=== PATIENT | male | born 1955 | race Caucasian/White ===

== ENCOUNTER 2025-10-11 08:02 | Outpatient (CLI) | payer MEDICARE, SELFPAY ==
--- OUTSIDE RECORDS SUMMARY | 2005-07-01 18:00 | XMS_ITS | Continuity of Care Document ---
Author Organization [facility] Address [address] [place] [phone] Phone Care Team Providers Care Preforming Machine Operator Name Role Phone Magen Kaur MD Unavailable Unavailable Medications Medication Instructions Dosage Effective Dates (start - stop) Status Comments Augmentin 875 mg-125 mg Tab 1 BID - Active Vitamin B-1 50 mg Tab - Active Vitamin B-6 50 mg Tab 1 QD - Active VITAMIN E 200U CAPSULE 1 BID - Active VITAMIN C 1500MG TABLET 1 BID - Active Advance Directives Directive Yes / No Effective Date File Name No Information Encounters Encounter Description Practice Location Reason(s) For Visit Diagnoses Date Provider Providers Copied on Encounter [facility], [address] [place] [address], [id number] tel:[phone] [facility]ello [employer] No Information Aug-0 3200 5 Natasha Us[address] [place] [address], [id number] , [place]. tel:[phone] [facility], [address] [place] [address], [id number] tel:[phone] [facility] [employer] [employer] Sclerosis, multiple Apr-2 0-200 5 Natasha Us. [address] [place] [address], [id number] , [place]. tel:[phone] Family History Family Member Type Diagnosis Age At Onset No Information Payers Payer name Insurance type Covered democrat ID Authoriza ticatarino(s) Medicare MB [id number] Social History Type Description Quantity Date Captured Comments Sex Male Smoking Status No Information Chief Complaint And Reason For Visit No Information Reason For Referral Reason For Referral No Information History Of Present Illness Encounter Date Complaint History Of Prese nt Illness No Information Functional Status Date Functional Assessmen t No Information Instructions Date Instruction Additional Infor mation No Information Assessments Type Assessment Date No Information Patient Care Teams Name Effective Dates (start - stop) Status Members No Information
--- NOTE | ~2025-10-11 | PE_ITS ---
EXAMINATION: PET_PETPSMAST_PT DATE: 10/11/2025 11:00 INDICATION: Prostate cancer TECHNIQUE: 3.292 mCi of Illucix Ga-68([id number]) was administered i.v. Low dose computed tomography (CT) images were acquired from the base of the brain to the base of the brain to the proximal thighs for attenuation correction and anatomic localization. Positron emission tomography (PET) images were acquired in the same distribution beginning 68 minutes after injection. Images including fused PET/CT images were reconstructed in axial, coronal, and sagittal planes. Automated exposure control technique was employed. The dose-length product was 563.00mGy-cm. COMPARISON: None FINDINGS: Head/neck: Typical pattern of symmetric physiologic increased activity in the lacrimal, parotid and submandibular glands as well as along the mucosa of the nasal and oral cavities, pharynx and hypopharynx. No pathologically enlarged cervical lymphadenopathy or suspicious foci of increased uptake in the visualized head or neck. Chest: Mild dependent atelectasis in both lungs. No suspicious pulmonary nodules, pneumonia, pulmonary edema or pleural effusion. Heart size is normal. Small amount of atherosclerotic coronary artery calcific lesion. Thoracic aorta is normal in caliber. There are multiple markedly FDG avid normal sized lymph nodes at the right axilla and supraclavicular region with maximal SUV values up to 22.1. Linear tracts of increased activity can be seen extending distally in the visualized right upper arm and visualized proximal forearm which suggests lymphatic accumulation of extravasated uptake from the injection was at the right hand. Discussion with technologist confirms that there was some extravasation of activity with swelling at the injection site. No pathologically enlarged or other PSMA avid thoracic lymphadenopathy. Abdomen/pelvis/proximal thighs: Physiologic renal accumulation and excretion of activity in the kidneys, bladder and along portions of ureters. Prostatomegaly measuring 5.3 x 4.2 cm. There is a region of increased FDG activity at the right peripheral zone of the prostate with maximal SUV of 4.4 consistent with primary prostate cancer. Subtle 1 cm low-attenuation lesion left hepatic lobe without abnormal activity most likely either a cyst or hemangioma. Normal degree and slightly heterogenous pattern of increased uptake throughout the liver and spleen without radiologic correlate or dominant PSMA avid lesion. The gallbladder, pancreas and bilateral adrenal glands are normal. Moderate uptake scattered throughout the bowels with typical duodenal and proximal jejunal predominance and without radiologic correlate, also likely physiologic. Mild diverticulosis along the sigmoid colon without adjacent inflammatory stranding to suggest diverticulitis. Large left inguinal hernia containing fat inferiorly and a 4.8 x 3.4 cm loculated fluid collection at the proximal aspect of the inguinal canal. The proximal sigmoid colon extends across the orifice of the left inguinal hernia. There is also a small fat- containing right inguinal hernia. No other abnormal foci of increased uptake or pathologically enlarged lymphadenopathy in the abdomen, pelvis or proximal thighs. Musculoskeletal: Severe cervical and moderate thoracic and lumbar spondylosis with bridging osteophytes throughout the thoracic and lumbar spine fusion between spinous processes consistent with diffuse idiopathic skeletal hyperostosis (DISH). There are few small densely sclerotic likely bone islands in the pelvis and bilateral femoral heads without evident pacemaker activity consistent with benign bone islands. Old healed posterior right rib fractures. No suspicious PSMA abdomen avid bone lesions to suggest metastatic prostate cancer. IMPRESSION: 1. Multiple very small but intensely FDG avid lymph nodes at the right axilla and supraclavicular region which could be an atypical distribution for isolated metastatic disease which is most likely related to lymphatic accumulation of activity which was noted to be extravasated the site of injection at the right hand. 2. Prostatomegaly with regions of increased uptake at the right peripheral zone consistent with primary prostate cancer. No other lesions suspicious for metastatic disease. 3. Large left inguinal hernia containing fat inferiorly and a 4.8 x 3.4 similar loculated fluid collection at the proximal aspect of the inguinal canal. Reviewed, dictated and finalized at location A. RA TUNING ENGINEER IMPRESSION: 1. Multiple very small but intensely FDG avid lymph nodes at the right axilla a nd supraclavicular region which could be an atypical distribution for isolated metastatic disease which is most likely related to lymphatic accumulation of ac tivity which was noted to be extravasated the site of injection at the right anaya nd. 2. Prostatomegaly with regions of increased uptake at the right peripheral zone consistent with primary prostate cancer. No other lesions suspicious for metas tatic disease. 3. Large left inguinal hernia containing fat inferiorly and a 4.8 x 3.4 similar loculated fluid collection at the proximal aspect of the inguinal canal.
--- OUTSIDE RECORDS SUMMARY | 2025-10-11 08:32 | XMS_ITS | Clinical Summary ---
Author Organization [facility] Address [address] [place] [address] Care Team Providers Care Colorer Machine Name Role Phone Butch Reed MD Unavailable [phone] Butch Reed MD Primary Care Provider [phone] Bakari Gonzalez MD Unavailable [phone] Allergies No known active allergies Medications folic acid (FOLVITE) 1 mg tablet Take 1 tablet (1 mg total) by mouth daily 01/30/2021 Active thiamine (VITAMIN B1) 100 mg tablet Take 1 tablet (100 mg total) by mouth daily 01/30/2021 Active multivitamin with minerals (Multiple Vitamin-Mineral s) tablet Take 1 tablet by mouth daily 01/30/2021 Active HYDROcodone-jaswinder taminophen (NORCO) 5-325 mg per tabletIndicatio ns:Pain Take 1 tablet by mouth every 4 (four) hours as needed for pain 15 tablet 06/08/2025 Active docusate sodium (COLACE) 100 mg capsuleIndicati ons:constipatio n Take 1 capsule (100 mg total) by mouth 2 (two) times a day 30 capsule 2 06/09/2025 Active Active Problems Problem Noted Date Diagnosed Date S/P hernia repair 06/08/2025 Surgical History Surgery Date Site/Laterality Comments NO PAST SURGERIES Medical History Medical History Date Comments No family history of adverse response to anesthe lorena Social History Tobacco Use Types Packs/Day Years Used Date Smoking Tobacco: Never Smokeless Tobacco: Never Tobacco Cessation:Counseling Given: Not Answered [facility] Utilities Answer Date Recorded In the past 12 months has th e [employer], gas, oil, or water [employer] threatened to shut off services in your home? No 06/09/2025 Social Connection and Isolation Panel Answer Date Recorded In a typical week, how many times do you talk on the phone with family, friends, or neighbors? More than three times a week 06/09/2025 How often do you get togethe r with friends or relatives? More than three times a week 06/09/2025 How often do you attend chur ch or holiness services? More than 4 times per year 06/09/2025 Do you belong to any clubs o r organizations such as hinduism groups, unions, fraternal or athletic groups, or school groups? Yes 06/09/2025 How often do you attend meet ings of the clubs or organizations you belong to? More than 4 times per year 06/09/2025 Are you , , di vorced, , never , or living with a partner? Never 06/09/2025 AUDIT-C Answer Date Recorded Q1: How often do you have a drink containing alc ohol? 2-3 times a week 06/08/2025 Q2: How many drinks containi ng alcohol do you have on a typical day when you are drinking? 1 or 2 06/08/2025 Q3: How often do you have si x or more drinks on one occasion? Never 06/08/2025 Overall Financial Resource Strain (CARDIA) Answe r Date Recorded How hard is it for you to pa y for the very basics like food, housing, medical care, and heating? Not hard at all 06/09/2025 Hunger Vital Sign Answer Date Recorded Within the past 12 months, y ou worried that your food would run out before you got the money to buy more. Never true 06/09/20 25 Within the past 12 months, t he food you bought just didn't last and you didn't have money to get more. Never true 06/09/2025 PRAPARE - Transportation Answer Date Re corded In the past 12 months, has l ack of transportation kept you from medical appointments or from getting medications? No 05/30 In the past 12 months, has l ack of transportation kept you from meetings, work, or from getting things needed for daily living? No 06/09/2025 Housing Stability Vital Sign Answer Matias e Recorded In the last 12 months, was t here a time when you were not able to pay the mortgage or rent on time? No 06/09/2025 In the past 12 months, how m any times have you moved where you were living? 0 06/09/2025 At any time in the past 12 m [facility], were you homeless or living in a longterm (including now)? No 06/09/2025 Personal Safety Answer Date Recorded Have you ever been in or are you currently in a harmful physical or emotional relationship or is someone making you feel afraid or unsafe? 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 Gender Identity Not on file Sexual Orientation Not on file Last Filed Vital Signs Vital Sign Reading Time Taken Comments Blood Pressure 127/84 06/11/2025 7:34 AM CDT Pulse 99 06/11/2025 7:34 AM CDT Temperature 37 C (98.6 F) 06/11/2025 7:34 AM CDT Respiratory Rate 18 06/11/2025 7:34 AM CDT Oxygen Saturation 97% 06/11/2025 7:34 AM CDT Inhaled Oxygen Concentration - - Weight 68.4 kg (150 lb 11.2 oz) 06/08/2025 8:35 AM CDT Height 177.8 cm (5' 10) 06/08/2025 8:35 AM CDT Body Mass Index 21.62 06/08/2025 8:35 AM CDT Plan of Treatment Health Maintenance Due Date Last Done Comments Colon Cancer Screening-Colonoscopy 1955 Depression Screening 1955 Hepatitis C Screening 1955 DTaP/Tdap/Td Vaccine (1 - Tdap) 1964 Hepatitis B Screening 1971 Pneumococcal vaccine 65+ (1 of 1 - PCV) 2003 Zoster Vaccine (1 of 2) 2003 Well Visit 65+ 2018 Influenza Vaccine (#1) 2025 Fall Risk Assessment 06/11/2026 06/11/2025 Medical Devices Implanted Type Area Osteopathic Resident Device Identifier Shelf Expiration Date Model / Serial / Lot [employer] Mesh Surgical Inguinal Hernia Synthetic Patch 3dmax 4x6in [id number] - [id number] Implanted:Qty: 1 on 06/08/2025 by Bakari Gonzalez MD at [facility] Left: Inguinal [employer] [id number] 11/26/2029 [id number] / / [id number] [employer] Mesh Surgical Mid Anatomical Synthetic Patch 3dmax 5x7in [id number] - [id number] Implanted:Qty: 1 on 06/08/2025 by Bakari Gonzalez MD at [facility] Right: Inguinal [employer] Bard [id number] 02/24/2030 [id number] / / [id number] Insurance [facility] MEDICARE ADVANTAGE IDPA Advance Directives For more information, please contact: [phone] * Full Code (Latest Code Status on File) Date Activated Date Inactivated Comments 06/08/2025 6:25 PM 06/11/2025 7:01 PM Care Teams Colorer Machine Relationship Specialty Start Date End Date Butch Reed MD PCP - General Family Medicine 06/05/25 Butch Reed MD Referring Physician Family Medicine 05/22/25 [place] [address] [place] [id number] Consulting Physician General Surgery 06/08/25
== END 2025-10-11 08:03 | disposition home or self-care (01) ==
LOC: ANHIMG 08:22
PROVIDERS: Visit Provider Urology
DX: C61 Malignant neoplasm of prostate (principal); K40.90 Unilateral inguinal hernia, without obstruction or gangrene, not specified as recurrent
CPT/HCPCS: 78815; A9596